=== PATIENT | male | born 1950 | race Caucasian/White ===

== ENCOUNTER 2017-03-05 16:57 | Inpatient (IN) ==
[2017-03-05] MEDS ORDERED: Ipratropium/Albuterol Neb 3 ML IH ONE (17:06)
[2017-03-05] MEDS ORDERED: methylPREDNISolone 125 MG/2 ML VIAL IVP ONE (17:06)
--- NOTE | 2017-03-05 17:11 | Emergency Department Note ---
Disposition Clinical Impression: Acute exacerbation of chronic obstructive airways disease Disposition: Admitted As Inpatient Condition: Fair Referrals: Chandra Hamilton MD [Primary Care Provider] - Forms: ED Satisfaction Letter Time of Disposition: 18:11 SOB HPI - General Chief Complaint: ED Shortness of Breath/Dyspnea Stated Complaint: SELENA Time Seen by Provider: 03/05/17 17:06 Source: patient Limitations: no limitations Nursing Notes Reviewed: Yes Vital Signs Reviewed: Yes - History of Present Illness 66-year-old with history COPD comes in with increasing shortness of breath over the last 3-4 days. Patient uses oxygen at night and has required oxygen during the day. On arrival here his pulse ox was 78%. Patient was placed on oxygen his pulse ox at 2 L came up to about 90%. Pt Subjective Complaint: shortness of breath, "asthma attack" Onset (ago): day(s) Context: recent illness - Related Data Allergies Allergy/AdvReac Type Severity Reaction Status Date / Time No Known Allergies Allergy Verified 03/05/17 17:32 Past Medical History - Past Medical History Medical history: Reports: COPD, diabetes, hypertension - Social History Smoking Status: Current every day smoker Physical Exam - General Limitations: no limitations General appearance: alert, in no apparent distress Course - Reevaluation(s) Reevaluation #1: 66-year-old with COPD comes in with increasing shortness of breath the last couple days, requiring oxygen to maintain his pulse ox. Patient does require oxygen at night but not usually during the day. Patient was placed on BiPAP here with improvement in symptoms. Note for further evaluation and treatment. Time: 18:11 - Consultations Consultation #1: Discussed with andrew Cordero. Time: 18:33 Vital Signs Temperature 98.0 F 03/05/17 17:00 Pulse Rate 117 03/05/17 17:00 Respiratory Rate 20 03/05/17 17:00 Blood Pressure 110/62 03/05/17 17:00 O2 Sat by Pulse Oximetry 82 03/05/17 17:00 Temperature 98.0 F 03/05/17 17:00 Pulse Rate 105 03/05/17 17:49 Respiratory Rate 14 03/05/17 17:49 Blood Pressure 110/76 03/05/17 17:49 O2 Sat by Pulse Oximetry 93 03/05/17 17:49 Oxygen Delivery Oxygen Delivery Nasal Cannula Shortness of Breath/Dyspnea - Lab Data Result diagrams: 03/05/17 17:52 03/05/17 17:52 Lab Results 03/05/17 03/05/17 03/05/17 Range/Units 17:23 17:52 17:52 WBC 18.7 H (4.3-11.1) K/mcL RBC 4.51 (4.19-5.50) M/mcL Hgb 14.5 (12.9-16.9) g/dL Hct 44.9 (37.5-50.1) % MCV 99.6 (83.0-100.0) fL MCH 32.2 (28.0-33.3) pg MCHC 32.3 (31.6-35.5) g/dL RDW 13.5 (11.5-14.5) % Plt Count 283 (140-400) K/mcL MPV 9.0 L (9.4-12.4) fL Immature Gran % 0.4 (0-4) % Seg Neutrophils % 85.6 % Lymphocytes % 3.4 % Monocytes % 10.4 % Eosinophils % 0.0 % Basophils % 0.2 % Neutrophils # 16.0 H (1.6-8.9) K/mcL Lymphocytes # 0.6 (0.6-4.6) K/mcL Monocytes # 2.0 H (0.0-1.3) K/mcL Eosinophils # 0.0 (0.0-0.6) K/mcL Basophils # 0.0 (0.0-0.2) K/mcL ABG pH 7.32 (7.32-7.45) pH Units ABG pCO2 78 H* (35-45) mmHg ABG pO2 75 L (85-104) mmHg ABG HCO3 40 H (21-27) mEq/L ABG Total CO2 43 H (20-26) mEq/L ABG O2 Saturation 93 L (95-98) % ABG Base Excess 10 H (-2 to 3) mEq/L O2 Delivery Device Cannula Inspired O2 3.0 (1-15=lpm [id number]=%) Sodium 136 (136-145) mEq/L Potassium 4.5 (3.5-4.5) mEq/L Chloride 91 L (98-109) mEq/L Carbon Dioxide 35 H (19-29) mEq/L BUN 12 (8-26) mg/dL Creatinine 0.70 L (0.72-1.25) mg/dL Est GFR ( Amer) > 60 (> 60) Est GFR (Non-Af Amer) > 60 (> 60) BUN/Creatinine Ratio 17 (6-26) Glucose 171 H (70-99) mg/dL Calculated Osmolality 286 (280-300) Lactic Acid (0.5-2.2) mmol/L Calcium 10.2 (8.6-10.8) mg/dL Troponin I (0-0.03) ng/mL B-Natriuretic Peptide (0-100) pg/mL 03/05/17 03/05/17 03/05/17 Range/Units 17:52 17:52 17:52 WBC (4.3-11.1) K/mcL RBC (4.19-5.50) M/mcL Hgb (12.9-16.9) g/dL Hct (37.5-50.1) % MCV (83.0-100.0) fL MCH (28.0-33.3) pg MCHC (31.6-35.5) g/dL RDW (11.5-14.5) % Plt Count (140-400) K/mcL MPV (9.4-12.4) fL Immature Gran % (0-4) % Seg Neutrophils % % Lymphocytes % % Monocytes % % Eosinophils % % Basophils % % Neutrophils # (1.6-8.9) K/mcL Lymphocytes # (0.6-4.6) K/mcL Monocytes # (0.0-1.3) K/mcL Eosinophils # (0.0-0.6) K/mcL Basophils # (0.0-0.2) K/mcL ABG pH (7.32-7.45) pH Units ABG pCO2 (35-45) mmHg ABG pO2 (85-104) mmHg ABG HCO3 (21-27) mEq/L ABG Total CO2 (20-26) mEq/L ABG O2 Saturation (95-98) % ABG Base Excess (-2 to 3) mEq/L O2 Delivery Device Inspired O2 (1-15=lpm [id number]=%) Sodium (136-145) mEq/L Potassium (3.5-4.5) mEq/L Chloride (98-109) mEq/L Carbon Dioxide (19-29) mEq/L BUN (8-26) mg/dL Creatinine (0.72-1.25) mg/dL Est GFR ( Amer) (> 60) Est GFR (Non-Af Amer) (> 60) BUN/Creatinine Ratio (6-26) Glucose (70-99) mg/dL Calculated Osmolality (280-300) Lactic Acid 2.5 H (0.5-2.2) mmol/L Calcium (8.6-10.8) mg/dL Troponin I 0.00 (0-0.03) ng/mL B-Natriuretic Peptide 42 (0-100) pg/mL
[2017-03-05 17:28] LABS: ABG Base Excess 10 mEq/L (-2 to 3); ABG HCO3 40 mEq/L (21-27); ABG Oxygen Saturation 93 % (95-98); ABG PCO2 78 mmHg (35-45); ABG PH 7.32 pH Units (7.32-7.45); ABG PO2 75 mmHg (85-104); ABG TCO2 43 mEq/L (20-26)
[2017-03-05 18:06] LABS: Basophils % 0.2 %; Hematocrit 44.9 % (37.5-50.1); Hemoglobin 14.5 g/dL (12.9-16.9); Immature Granulocytes % 0.4 % (0-4); Lymphocytes # 0.6 K/mcL (0.6-4.6); Lymphocytes % 3.4 %; Mean Corpuscular HGB Conc 32.3 g/dL (31.6-35.5); Mean Corpuscular Hemoglobin 32.2 pg (28.0-33.3); Mean Corpuscular Volume 99.6 fL (83.0-100.0); Monocytes % 10.4 %; Platelet Count 283 K/mcL (140-400); Red Blood Count 4.51 M/mcL (4.19-5.50); Red Cell Distribution Width 13.5 % (11.5-14.5); Segmented Neutrophils % 85.6 %
[2017-03-05 18:23] LABS: BUN/Creatinine Ratio 17 (6-26); Blood Urea Nitrogen 12 mg/dL (8-26); Calcium 10.2 mg/dL (8.6-10.8); Carbon Dioxide 35 mEq/L (19-29); Chloride 91 mEq/L (98-109); Glucose 171 mg/dL (70-99); Osmolality,Calculated 286 (280-300); Potassium 4.5 mEq/L (3.5-4.5); Sodium 136 mEq/L (136-145); eGFR For African Americans > 60 (> 60); eGFR For Non-African Americans > 60 (> 60)
[2017-03-05] MEDS ORDERED: Naloxone 0.4 MG/ML INJ IVP PRN (20:16)
[2017-03-05] MEDS ORDERED: *HR* HYDROcodone/Acet 5/325 mg TABLET PO PRN (20:16)
[2017-03-05] MEDS ORDERED: Ondansetron 4 MG/2 ML VIAL IVP PRN (20:16)
[2017-03-05] MEDS ORDERED: Acetaminophen 325 MG TABLET PO PRN (20:16)
--- NOTE | 2017-03-05 20:23 | Internal Med History&Physical ---
<Moi Ma - Last Filed: 03/05/17 21:27> Date of Encounter: 03/05/17 Time of Encounter: 20:21 Assessment and Plan (1) Acute and chronic respiratory failure Current visit: Yes Status: Acute Hypercapnic respiratory failure due to COPD exacerbation. - Pt uses 2L O2 at home due to COPD. Continues to smoke 1PPD. Encouraged to quit - Further management as below Qualifiers: Respiratory failure complication: hypercapnia Qualified Code(s): J96.22 - Acute and chronic respiratory failure with hypercapnia (2) Acute exacerbation of chronic obstructive airways disease Current visit: Yes Status: Acute - COPD exacerbation most likely. - CXR showed bilateral linear infiltrates, however most likely scarring. - Pt denies fevers, chills, productive cough. - ABG showing respiratory acidosis most likely chronic compensation given elevated HCO3. Was initially placed on BiPAP, tolerating 4L - WBC count and lactic acid most likely elevated due to hypoxia and reactive process - Severe sepsis unlikely. - Will give azithromycin 500 qday, methylprednisone 40mg q6hr, scheduled duonebs , supplemental O2, PRN albuterol (3) Lactic acidosis Current visit: Yes Status: Acute - Lactic acid of 2.5 on admission. More likely secondary to hypoxia than infectious process. - Will trend and monitor. - Azithromycin for COPD (4) Leukocytosis Current visit: Yes Status: Acute - WBC of 18.7 on admission. - Most likely reactive and related to hypoxia. - Pt does not appear to be septic. - Will continue management for COPD including azithromycin. - Monitor with daily labs, giving steroids, expect further rise. Qualifiers: Leukocytosis type: bandemia Qualified Code(s): D72.825 - Bandemia (5) Pre-diabetes Current visit: Yes Status: Chronic Per patient. Most recent A1c of 5.5% in August - Will get repeat a1c as it has been 3 months. - Will also check BS ACHS and give mild SSI due to administration of steroids - Diabetic diet. (6) Alcohol abuse Current visit: Yes Status: Chronic - Reports drinking a 6 pack of beer every night. - Encouraged to cut down. - Will monitor with CIWA protocol. - Thiamine, folate, b vitamin bag ordered. (7) DVT prophylaxis Current visit: Yes Status: Acute - Heparin 5000 units q12 Internal Medicine - H&P: HPI Chief complaint: SOB Admitted From: Emergency Dept Plans for Post Hospital Care: Home History of present illness: Mr. Bernal is a 66 year old male with past medical history of COPD presented to emergency department with a complaint of shortness of breath 1 week. He states his symptoms have been progressively worsening in that week. He states he has had a nonproductive cough during this time with what he believes to be thick mucus. Denies any symptoms of fevers, chills, chest pain, abdominal pain , nausea, vomiting, lower extremity edema. He states that his shortness of breath is exacerbated with exertion but denies any symptoms of orthopnea. He normally uses 2 L of oxygen at home, mostly during the night however states that using the 2 L continuously throughout the day it is not relieved his shortness of breath. He does admit to smoking one pack of cigarettes per day for the last 55 years. He also admits to drinking a sixpack of beer per night. He states he never hospitalized for COPD in the past. In the emergency department, vital signs were significant for tachycardia. He was saturating 3 L of oxygen in the mid 90s. Labs were significant for an elevated white blood cell count of 18.7, lactic acid 2.5. Arterial blood gas showed respiratory acidosis which was metabolically compensated. CO2 was in 70s. Past Med Surg Social Fam HX - Past Medical History Medical history: COPD, diabetes, hypertension - Past Surgical History Surgical History: no surgical history - Social History Smoking Status: Current every day smoker Alcohol use: heavy (6 beers per night) Internal Medicine - H&P: Meds Albuterol Sulfate [Albuterol Inhaler] 2 puff IH Q4H PRN 03/05/17 [History] Finasteride [Proscar] 5 mg PO DAILY 03/05/17 [History] Lisinopril [Zestril] 10 mg PO DAILY 03/05/17 [History] metFORMIN [Glucophage] 500 mg PO DAILY 03/05/17 [History] 3 Allergy/AdvReac Type Severity Reaction Status Date / Time No Known Allergies Allergy Verified 03/05/17 17:32 All Systems PM: A 10-system review of systems was performed and is negative for pertinent findings except as documented above in the HPI. - Constitutional Constitutional: no anorexia, no chills, no fatigue, no fever(s) - Cardiovascular Cardiovascular ROS IM: dyspnea, dyspnea on exertion, no chest pain, no diaphoresis, no edema, no orthopnea - Respiratory Respiratory: cough, dyspnea, dyspnea on exertion, wheezing, no excessive phlegm production, no change in phlegm color - Gastrointestinal Gastrointestinal: no abdominal pain, no constipation, no diarrhea, no nausea, no vomiting - Neurological Neurological ROS: no numbness, no tingling - Constitutional Vitals: Temp Pulse Resp BP Pulse Ox 98.0 F 98 16 125/71 94 03/05/17 17:00 03/05/17 19:17 03/05/17 19:17 03/05/17 19:17 03/05/17 19:17 Exam: Gen.: Vitals noted. No acute distress. AAOx3. Speaking in short sentences on 4L O2. HEENT: PERRL, oropharynx clear, Normocephalic, atraumatic. Poor dentition. Neck: Supple. No adenopathy. Cardiac: RRR, no murmur, +S1/S2 Pulmonary: Bilateral inspiratory wheeze, worse on right, equal chest expansion Abdomen: soft, nontender, BS noted, no guarding Back: Nontender throughout. MSK: ROM intact, no joint swelling noted Extremities: no BLE edema, nontender calf, no cyanosis or clubbing Neuro: A&Ox3, moves all extremities, no focal deficits Psych: Appropriate mood and behavior Internal Med - H&P Results - Labs CBC & Chem 7: 03/05/17 17:52 03/05/17 17:52 <Aydin Strong - Last Filed: 03/05/17 21:48> Date of Encounter: 03/05/17 Internal Medicine - H&P: HPI History of present illness: Mr. Bernal is a 66 year old male All Systems PM: A 10-system review of systems was performed and is negative for pertinent findings except as documented above in the HPI. - Constitutional Vitals: Temp Pulse Resp BP Pulse Ox 98.9 F 90 18 145/72 98 03/05/17 20:30 03/05/17 20:30 03/05/17 20:30 03/05/17 20:30 03/05/17 20:30 Internal Med - H&P Results - Labs CBC & Chem 7: 03/05/17 17:52 03/05/17 17:52 - Attending Attestation I have seen and examined the patient independently. I have discussed with resident physician regarding the management plan. Agree with the documentation. Patient admitted to COPD exacerbation. We will continue antibiotics, steroids, and bronchodilator treatment. We will continue oxygen and may consider BiPAP as needed. We will add magnesium 2g iv once for bronchospasm. Continue closely monitor patient.
[2017-03-05] MEDS ORDERED: Dextrose Gel 15 GM PO PRN ×2 (20:28)
[2017-03-05] MEDS ORDERED: *HR* Dextrose 50 % in Water (Syg) 50 ML SYRINGE IVP PRN (20:28)
[2017-03-05] MEDS ORDERED: D5% in Water 1,000 ML IVC PRN (20:28)
[2017-03-05] MEDS ORDERED: Magnesium Sulfate 2 GM in D5% in Water 100 ML IVPB ONE (20:31)
[2017-03-05] MEDS ORDERED: Azithromycin 500 MG in D5% in Water 250 ML IVPB SCH (21:00)
[2017-03-05] MEDS ORDERED: *HR* LORazepam 2 MG/ML VIAL IVP PRN (21:22)
[2017-03-05 21:36] LABS: Hemoglobin A1C 5.8 %
[2017-03-05] MEDS ORDERED: Ipratropium/Albuterol Neb 3 ML IH PRN (21:57)
[2017-03-05] MEDS: Ipratropium/Albuterol Neb 3 ML IH SCH (22:15)
[2017-03-05] MEDS: MethylPREDNISolone 40 MG/ML VIAL IVP SCH (23:40)
[2017-03-06] MEDS ORDERED: MethylPREDNISolone 40 MG/ML VIAL IVP SCH
[2017-03-06] MEDS: Ipratropium/Albuterol Neb 3 ML IH SCH ×4 (04:09→23:03)
[2017-03-06] MEDS: *HR* Heparin 5,000 UNIT/ML VIAL SQ SCH ×2 (05:37→16:33)
[2017-03-06] MEDS: MethylPREDNISolone 40 MG/ML VIAL IVP SCH ×4 (05:37→23:16)
[2017-03-06 05:42] LABS: Basophils % 0.1 %; Hematocrit 41.7 % (37.5-50.1); Hemoglobin 13.3 g/dL (12.9-16.9); Immature Granulocytes % 0.6 % (0-4); Lymphocytes # 0.5 K/mcL (0.6-4.6); Lymphocytes % 3.5 %; Mean Corpuscular HGB Conc 31.9 g/dL (31.6-35.5); Mean Corpuscular Hemoglobin 31.4 pg (28.0-33.3); Mean Corpuscular Volume 98.3 fL (83.0-100.0); Mean Platelet Volume 8.6 fL (9.4-12.4); Monocytes # 0.3 K/mcL (0.0-1.3); Monocytes % 2.1 %; Neutrophils # 13.7 K/mcL (1.6-8.9); Platelet Count 287 K/mcL (140-400); Red Blood Count 4.24 M/mcL (4.19-5.50); Red Cell Distribution Width 13.3 % (11.5-14.5); Segmented Neutrophils % 93.7 %
[2017-03-06 06:22] LABS: BUN/Creatinine Ratio 20 (6-26); Blood Urea Nitrogen 13 mg/dL (8-26); Calcium 9.5 mg/dL (8.6-10.8); Carbon Dioxide 37 mEq/L (19-29); Chloride 92 mEq/L (98-109); Glucose 206 mg/dL (70-99); Magnesium 2.5 mg/dL (1.6-2.6); Osmolality,Calculated 288 (280-300); Potassium 4.7 mEq/L (3.5-4.5); Sodium 136 mEq/L (136-145); eGFR For African Americans > 60 (> 60); eGFR For Non-African Americans > 60 (> 60)
[2017-03-06] MEDS: Insulin LISPRO 300 UNITS/3 ML VIAL SQ SCH ×3 (08:28→16:33)
[2017-03-06] MEDS: Finasteride 5 MG TABLET PO SCH (08:28)
[2017-03-06] MEDS: Folic Acid 1 MG TABLET PO SCH (08:28)
[2017-03-06] MEDS ORDERED: Nicotine 21 MG PATCH.TD24 TD PRN (10:20)
--- NOTE | 2017-03-06 10:21 | Internal Med Progress Note ---
Date of Encounter: 03/06/17 Time of Encounter: 10:19 - Assessment and plan (1) Acute exacerbation of chronic obstructive airways disease Current Visit: Yes Status: Acute Assessment and plan: Improving. Improving leukocytosis and lactic acidosis. Continue IV steroids, taper down as tolerated. Change antibiotics to IV Levaquin. Chest x-ray shows bibasal infiltrates-infection versus scar tissue. Continue scheduled bronchodilators, supplemental oxygen. Patient will require inhaled corticosteroids at discharge. Start inhalational Mucomyst. (2) Tobacco abuse Current Visit: Yes Status: Chronic Assessment and plan: Smoking cessation counseling done for 3 minutes. Patient understands the risks of tobacco abuse and harmful effects of underlying COPD. Currently not motivated to quit. Nicotine transdermal patch as needed. (3) BPH (benign prostatic hyperplasia) Current Visit: Yes Status: Chronic Assessment and plan: Continue Flomax. Qualifiers: Lower urinary tract symptom presence: unspecified whether lower urinary tract symptoms present Qualified Code(s): N40.0 - Benign prostatic hyperplasia without lower urinary tract symptoms (4) Lactic acidosis Current Visit: Yes Status: Resolved Assessment and plan: Likely due to hypoxia and use of albuterol. (5) Pre-diabetes Current Visit: Yes Status: Chronic Assessment and plan: Noted to be on metformin at home. Continue Accu-Chek blood glucose monitoring with sliding scale insulin. At risk for steroid-induced hyperglycemia. Hemoglobin A1c noted to be 5.8%. Diabetic diet. (6) Acute and chronic respiratory failure Current Visit: Yes Status: Chronic Assessment and plan: Noted to be on 3 L/m supplemental oxygen via nasal cannula at home, due to underlying COPD. Continue supplemental oxygen and wean down FiO2 as tolerated. Qualifiers: Respiratory failure complication: hypoxia Qualified Code(s): J96.21 - Acute and chronic respiratory failure with hypoxia (7) Alcohol abuse Current Visit: Yes Status: Chronic Assessment and plan: No signs and symptoms of alcohol withdrawal at this time. Continue CIWA protocol. Thiamine and folate supplements. - Subjective Interval history: Feels better than yesterday but needs breathing treatment at this time as he feels tight in his chest; no chest pain, leg swelling, orthopnea, fever/chills; continues to smoke; - Constitutional Vitals: Temp Pulse Resp BP Pulse Ox 97.9 F 69 16 122/65 97 03/06/17 07:45 03/06/17 07:45 03/06/17 07:45 03/06/17 07:45 03/06/17 07:45 General appearance: Present: mild distress, A&O X 3, answers questions appropriately - Respiratory Respiratory exam: Present: decreased breath sounds (decreased air entry B/L), CTAB. Absent: accessory muscle use, rales, rhonchi, wheezes - Cardiovascular Cardiovascular exam: Present: RRR, +S1, +S2. Absent: diastolic murmur, gallop, rubs, systolic murmur - GI/Abdominal GI/Abdominal exam: Present: normal bowel sounds, soft, no peritoneal signs. Absent: distended, tenderness - Extremities Exam Extremities exam: Present: full ROM, warm, radial pulses palpable and symmetrical. Absent: calf tenderness, cyanotic, pedal edema - Neurological Exam Neurological exam: Present: CN II-XII intact, oriented X3, no focal deficits. Absent: pronater drift, facial droop, speech deficit Internal Medicine: Result - Labs CBC & Chem 7: 03/06/17 05:33 03/06/17 05:33 Labs: Short CBC 03/06/17 Range/Units 05:33 WBC 14.6 H (4.3-11.1) K/mcL Hgb 13.3 (12.9-16.9) g/dL Hct 41.7 (37.5-50.1) % Plt Count 287 (140-400) K/mcL Neutrophils # 13.7 H (1.6-8.9) K/mcL BMP 03/06/17 05:33 Sodium 136 Potassium 4.7 H Chloride 92 L Carbon Dioxide 37 H BUN 13 Creatinine 0.64 L Glucose 206 H Calcium 9.5 - ABG Interpretation ABG results: ABG ABG pH 7.32 pH Units (7.32-7.45) 03/05/17 17:23 ABG pCO2 78 mmHg (35-45) H* 03/05/17 17:23 ABG pO2 75 mmHg (85-104) L 03/05/17 17:23 ABG O2 Saturation 93 % (95-98) L 03/05/17 17:23 Consult Discharge Plan - Plan Referrals: Hamilton,Chandra Arce MD [Primary Care Provider] -
[2017-03-06] MEDS: Levofloxacin 500 MG/100 ML 500 MG/100 ML BAG IVPB SCH (11:45)
[2017-03-06] MEDS: Acetylcysteine 10% 2 ML INHSOL IH SCH ×2 (15:17→23:03)
[2017-03-06] MEDS: Thiamine (B-1) 100 MG, Folic Acid 1 MG, MVI, adult with vitamin K 10 ML in 0.9 % Sodi... IVPB SCH (16:34)
--- NOTE | 2017-03-06 18:14 | Electrocardiograph Report ---
[place] [id number] Test Date: 2017-03-05 Pat Name: Liu Bernal Department: 104 Room: 2NE22 Gender: M [employer]ag [employer]: NATACHA : [id number] Requested By: Liu Rashid Order Number: [id number] Reading MD: Moncho Leo MD Measurements Intervals [place] Rate: 111 P: 76 [place]: 185 QRS: 67 QRSD: 101 T: 62 QT: 306 QTc: 372 Interpretive Statements SINUS TACHYCARDIA WITH OCCASIONAL VENTRICULAR PREMATURE COMPLEXES Electronically Signed On 03-06-2017 18:13:39 EST by Moncho Leo MD
[2017-03-07] MEDS: MethylPREDNISolone 40 MG/ML VIAL IVP SCH ×4 (05:18→23:47)
[2017-03-07] MEDS: *HR* Heparin 5,000 UNIT/ML VIAL SQ SCH ×2 (05:18→16:51)
[2017-03-07 05:52] LABS: Basophils % 0.1 %; Hematocrit 40.4 % (37.5-50.1); Hemoglobin 13.1 g/dL (12.9-16.9); Immature Granulocytes % 0.6 % (0-4); Lymphocytes # 0.8 K/mcL (0.6-4.6); Lymphocytes % 4.4 %; Mean Corpuscular HGB Conc 32.4 g/dL (31.6-35.5); Mean Corpuscular Hemoglobin 31.6 pg (28.0-33.3); Mean Corpuscular Volume 97.6 fL (83.0-100.0); Mean Platelet Volume 8.9 fL (9.4-12.4); Monocytes # 0.7 K/mcL (0.0-1.3); Monocytes % 4.2 %; Neutrophils # 15.9 K/mcL (1.6-8.9); Platelet Count 322 K/mcL (140-400); Red Blood Count 4.14 M/mcL (4.19-5.50); Red Cell Distribution Width 13.3 % (11.5-14.5); Segmented Neutrophils % 90.7 %
[2017-03-07] MEDS: Acetylcysteine 10% 2 ML INHSOL IH SCH ×4 (06:00→21:29)
[2017-03-07] MEDS: Ipratropium/Albuterol Neb 3 ML IH SCH ×4 (06:01→21:29)
[2017-03-07 06:24] LABS: BUN/Creatinine Ratio 29 (6-26); Blood Urea Nitrogen 20 mg/dL (8-26); Calcium 9.3 mg/dL (8.6-10.8); Carbon Dioxide 37 mEq/L (19-29); Chloride 96 mEq/L (98-109); Glucose 189 mg/dL (70-99); Osmolality,Calculated 294 (280-300); Potassium 4.2 mEq/L (3.5-4.5); Sodium 138 mEq/L (136-145); eGFR For African Americans > 60 (> 60); eGFR For Non-African Americans > 60 (> 60)
[2017-03-07] MEDS: Finasteride 5 MG TABLET PO SCH (08:15)
[2017-03-07] MEDS: Folic Acid 1 MG TABLET PO SCH (08:15)
[2017-03-07] MEDS: Insulin LISPRO 300 UNITS/3 ML VIAL SQ SCH ×3 (08:15→16:52)
[2017-03-07] MEDS: Levofloxacin 500 MG/100 ML 500 MG/100 ML BAG IVPB SCH (11:43)
--- NOTE | 2017-03-07 12:02 | Internal Med Progress Note ---
Date of Encounter: 03/07/17 Time of Encounter: 12:01 - Assessment and plan (1) Acute exacerbation of chronic obstructive airways disease Current Visit: Yes Status: Acute Assessment and plan: Improving. Leukocytosis likely due to use of IV steroids. Continue IV steroids, taper down as tolerated. Continue IV Levaquin. Chest x-ray shows bibasal infiltrates-infection versus scar tissue. Continue scheduled bronchodilators, supplemental oxygen. Patient will require inhaled corticosteroids at discharge. On inhalational Mucomyst. (2) Tobacco abuse Current Visit: Yes Status: Chronic Assessment and plan: Nicotine transdermal patch as needed. (3) BPH (benign prostatic hyperplasia) Current Visit: Yes Status: Chronic Assessment and plan: Continue Flomax. Qualifiers: Lower urinary tract symptom presence: unspecified whether lower urinary tract symptoms present Qualified Code(s): N40.0 - Benign prostatic hyperplasia without lower urinary tract symptoms (4) Lactic acidosis Current Visit: Yes Status: Resolved (5) Pre-diabetes Current Visit: Yes Status: Chronic Assessment and plan: Noted to be on metformin at home. Continue Accu-Chek blood glucose monitoring with sliding scale insulin. At risk for steroid-induced hyperglycemia. Hemoglobin A1c noted to be 5.8%. Diabetic diet. (6) Acute and chronic respiratory failure Current Visit: Yes Status: Chronic Qualifiers: Respiratory failure complication: hypoxia Qualified Code(s): J96.21 - Acute and chronic respiratory failure with hypoxia (7) Alcohol abuse Current Visit: Yes Status: Chronic Assessment and plan: No signs and symptoms of alcohol withdrawal at this time. Continue CIWA protocol, not requiring IV Ativan. Thiamine and folate supplements. - Subjective Interval history: Feels better but reports feeling jittery and anxious after breathing treatments ; improving shortness of breath; no chest pain; - Constitutional Vitals: Temp Pulse Resp BP Pulse Ox 98.1 F 85 18 107/66 96 03/07/17 07:00 03/07/17 07:00 03/07/17 09:46 03/07/17 07:00 03/07/17 09:46 General appearance: Present: A&O X 3, answers questions appropriately - Respiratory Respiratory exam: Present: decreased breath sounds (improving air entry), CTAB ( coarse breath sounds B/L). Absent: accessory muscle use, rales, rhonchi, wheezes - Cardiovascular Cardiovascular exam: Present: RRR, +S1, +S2. Absent: diastolic murmur, gallop, rubs, systolic murmur - GI/Abdominal GI/Abdominal exam: Present: normal bowel sounds, soft, no peritoneal signs. Absent: distended, tenderness - Extremities Exam Extremities exam: Present: full ROM, warm, radial pulses palpable and symmetrical. Absent: calf tenderness, cyanotic, pedal edema Internal Medicine: Result - Labs CBC & Chem 7: 03/07/17 05:26 03/07/17 05:26 Labs: Short CBC 03/07/17 Range/Units 05:26 WBC 17.5 H (4.3-11.1) K/mcL Hgb 13.1 (12.9-16.9) g/dL Hct 40.4 (37.5-50.1) % Plt Count 322 (140-400) K/mcL Neutrophils # 15.9 H (1.6-8.9) K/mcL BMP 03/07/17 05:26 Sodium 138 Potassium 4.2 Chloride 96 L Carbon Dioxide 37 H BUN 20 Creatinine 0.68 L Glucose 189 H Calcium 9.3 - ABG Interpretation ABG results: ABG ABG pH 7.32 pH Units (7.32-7.45) 03/05/17 17:23 ABG pCO2 78 mmHg (35-45) H* 03/05/17 17:23 ABG pO2 75 mmHg (85-104) L 03/05/17 17:23 ABG O2 Saturation 93 % (95-98) L 03/05/17 17:23 Consult Discharge Plan - Plan Referrals: Chandra Hamilton MD [Primary Care Provider] -
[2017-03-07] MEDS: Thiamine (B-1) 100 MG, Folic Acid 1 MG, MVI, adult with vitamin K 10 ML in 0.9 % Sodi... IVPB SCH (16:51)
[2017-03-08] MEDS: Ipratropium/Albuterol Neb 3 ML IH SCH ×4 (03:57→22:19)
[2017-03-08] MEDS: Acetylcysteine 10% 2 ML INHSOL IH SCH ×4 (03:57→22:19)
[2017-03-08] MEDS: *HR* Heparin 5,000 UNIT/ML VIAL SQ SCH ×2 (05:31→17:17)
[2017-03-08] MEDS: Folic Acid 1 MG TABLET PO SCH (09:18)
[2017-03-08] MEDS: MethylPREDNISolone 40 MG/ML VIAL IVP SCH ×2 (09:18→21:02)
[2017-03-08] MEDS: Vitamin B Complex/Vit C/Vit E 1 EACH TABLET PO SCH (09:18)
[2017-03-08] MEDS: Insulin LISPRO 300 UNITS/3 ML VIAL SQ SCH ×3 (09:18→17:16)
[2017-03-08] MEDS: Finasteride 5 MG TABLET PO SCH (09:18)
--- NOTE | 2017-03-08 11:18 | Internal Med Progress Note ---
Date of Encounter: 03/08/17 Time of Encounter: 11:17 - Assessment and plan (1) Acute exacerbation of chronic obstructive airways disease Status: Acute Assessment and plan: Improving. Leukocytosis likely due to use of IV steroids. Continue IV steroids, taper down as tolerated. Continue IV Levaquin. Chest x-ray shows bibasal infiltrates-infection versus scar tissue. Continue scheduled bronchodilators, supplemental oxygen. Patient will require inhaled corticosteroids at discharge. On inhalational Mucomyst. Physical and occupational therapy evaluation. (2) Tobacco abuse Status: Chronic Assessment and plan: Nicotine transdermal patch as needed. (3) BPH (benign prostatic hyperplasia) Status: Chronic Qualifiers: Lower urinary tract symptom presence: unspecified whether lower urinary tract symptoms present Qualified Code(s): N40.0 - Benign prostatic hyperplasia without lower urinary tract symptoms (4) Lactic acidosis Status: Resolved (5) Pre-diabetes Status: Chronic Assessment and plan: Noted to be on metformin at home. Continue Accu-Chek blood glucose monitoring with sliding scale insulin. At risk for steroid-induced hyperglycemia. Hemoglobin A1c noted to be 5.8%. Diabetic diet. (6) Acute and chronic respiratory failure Status: Chronic Assessment and plan: Noted to be on 3 L/m supplemental oxygen via nasal cannula at home, due to underlying COPD. Continue supplemental oxygen , currently at baseline oxygen requirements. Qualifiers: Respiratory failure complication: hypoxia Qualified Code(s): J96.21 - Acute and chronic respiratory failure with hypoxia (7) Alcohol abuse Status: Chronic - Subjective Interval history: Feels better with improving shortness of breath; but he feels like he needs another day of recuperation as he feels weak and unsteady and lives alone in a two paxton house; - Constitutional Vitals: Temp Pulse Resp BP Pulse Ox 97.9 F 63 20 135/74 97 03/08/17 07:30 03/08/17 07:30 03/08/17 07:30 03/08/17 07:30 03/08/17 07:30 General appearance: Present: A&O X 3, answers questions appropriately - Respiratory Respiratory exam: Present: decreased breath sounds (decreased air entry B/L), CTAB. Absent: accessory muscle use, rales, rhonchi, wheezes - Cardiovascular Cardiovascular exam: Present: RRR, +S1, +S2. Absent: diastolic murmur, gallop, rubs, systolic murmur - GI/Abdominal GI/Abdominal exam: Present: normal bowel sounds, soft, no peritoneal signs. Absent: distended, tenderness Internal Medicine: Result - Labs CBC & Chem 7: 03/07/17 05:26 03/07/17 05:26 - ABG Interpretation ABG results: ABG ABG pH 7.32 pH Units (7.32-7.45) 03/05/17 17:23 ABG pCO2 78 mmHg (35-45) H* 03/05/17 17:23 ABG pO2 75 mmHg (85-104) L 03/05/17 17:23 ABG O2 Saturation 93 % (95-98) L 03/05/17 17:23 Consult Discharge Plan - Plan Instructions: Prednisone (By mouth), Levofloxacin (By mouth), Budesonide/ Formoterol (By breathing), Chronic Obstructive Pulmonary Disease (DC) Referrals: Alfonso,Chandra Arce MD [Primary Care Provider] - 03/18/17 2:40 pm Prescriptions: Budesonide/Formoterol 160/4.5 [Symbicort 160/4.5] 2 puff IH BIDR 30 Days hfa.aer.ad levoFLOXacin [Levaquin] 500 mg PO DAILY #2 tablet predniSONE [PredniSONE] 60 mg PO DAILY 12 Days tablet
[2017-03-08] MEDS: Levofloxacin 500 MG/100 ML 500 MG/100 ML BAG IVPB SCH (12:13)
[2017-03-08] MEDS: Thiamine (B-1) 100 MG, Folic Acid 1 MG, MVI, adult with vitamin K 10 ML in 0.9 % Sodi... IVPB SCH (17:17)
[2017-03-09] MEDS: Acetylcysteine 10% 2 ML INHSOL IH SCH ×2 (03:37→11:00)
[2017-03-09] MEDS: Ipratropium/Albuterol Neb 3 ML IH SCH ×2 (03:37→11:00)
[2017-03-09] MEDS: *HR* Heparin 5,000 UNIT/ML VIAL SQ SCH (06:30)
[2017-03-09 06:56] VITALS: BP 140/82
[2017-03-09] MEDS: Folic Acid 1 MG TABLET PO SCH (08:35)
[2017-03-09] MEDS: Insulin LISPRO 300 UNITS/3 ML VIAL SQ SCH ×2 (08:35→11:50)
[2017-03-09] MEDS: Vitamin B Complex/Vit C/Vit E 1 EACH TABLET PO SCH (08:35)
[2017-03-09] MEDS: MethylPREDNISolone 40 MG/ML VIAL IVP SCH (08:35)
[2017-03-09] MEDS: Finasteride 5 MG TABLET PO SCH (08:35)
[2017-03-09] MEDS ORDERED: levoFLOXacin 500 MG TABLET PO SCH (11:00)
[2017-03-09] MEDS ORDERED: FLUARIX QUAD 2017-18 36MOS UP/PF 0.5 ML SYRINGE IM ONE (11:15)
--- NOTE | 2017-03-09 12:45 | Discharge Summary ---
Date of Encounter: 03/09/17 Time of Encounter: 11:35 - Discharge Diagnosis (1) Acute exacerbation of chronic obstructive airways disease Priority: Primary Status: Acute (2) Tobacco abuse Priority: Secondary Status: Chronic (3) BPH (benign prostatic hyperplasia) Priority: Secondary Status: Chronic Qualifiers: Lower urinary tract symptom presence: unspecified whether lower urinary tract symptoms present Qualified Code(s): N40.0 - Benign prostatic hyperplasia without lower urinary tract symptoms (4) Lactic acidosis Priority: Primary Status: Resolved (5) Pre-diabetes Priority: Secondary Status: Chronic (6) Acute and chronic respiratory failure Priority: Primary Status: Chronic Qualifiers: Respiratory failure complication: hypoxia Qualified Code(s): J96.21 - Acute and chronic respiratory failure with hypoxia (7) Alcohol abuse Priority: Secondary Status: Chronic - Discharge Medications Prescriptions: Budesonide/Formoterol 160/4.5 [Symbicort 160/4.5] 2 puff IH BIDR 30 Days hfa.aer.ad levoFLOXacin [Levaquin] 500 mg PO DAILY #2 tablet predniSONE [PredniSONE] 60 mg PO DAILY 12 Days tablet Home Medications: Albuterol Sulfate [Albuterol Inhaler] 2 puff IH Q4H PRN 03/05/17 [History] Finasteride [Proscar] 5 mg PO DAILY 03/05/17 [History] Lisinopril [Zestril] 10 mg PO DAILY 03/05/17 [History] metFORMIN [Glucophage] 500 mg PO DAILY 03/05/17 [History] Budesonide/Formoterol 160/4.5 [Symbicort 160/4.5] 2 puff IH BIDR 30 Days hfa.aer.ad 03/09/17 [Rx] levoFLOXacin [Levaquin] 500 mg PO DAILY #2 tablet 03/09/17 [Rx] predniSONE [PredniSONE] 60 mg PO DAILY 12 Days tablet 03/09/17 [Rx] Allergies/Adverse Reactions: 3 Allergy/AdvReac Type Severity Reaction Status Date / Time No Known Allergies Allergy Verified 03/05/17 17:32 Date of admission: 03/05/17 18:50 Primary care physician: Chandra Hamilton MD Consults: 03/05/17 20:17 Consult to Nurse Navigator [CONS] Routine Comment: 03/08/17 11:16 Consult to Occupational Therapy [CONS] Routine Comment: Evaluate, develop and implement POC Reason for Consult: Unsteady gait, COPD, smoker Consult to Physical Therapy [CONS] Routine Comment: Evaluate, develop and implement POC Reason for Consult: Unsteady gait, COPD, smoker 03/09/17 09:04 Consult to Bonderizer [CONS] Routine Reason for SW Consult: Alcohol/substance abuse Discharging clinician: Priya Murphy Anticipated date of discharge: 03/09/17 - Patient Status Disposition: Home, Self-Care Condition: Good Functional capacity at discharge: independent ambulation Overall status at discharge: patient is progressing back to baseline - Discharge Instructions Instructions: Prednisone (By mouth), Levofloxacin (By mouth), Budesonide/ Formoterol (By breathing), Chronic Obstructive Pulmonary Disease (DC) Follow Up With: Chandra Hamilton MD [Primary Care Provider] - 03/18/17 2:40 pm - Diet and Activity Activity: resume usual activities as tolerated, wear oxygen at all times Diet: diabetic diet, low fat, low cholesterol, low salt diet Hospital course: Mr. Bernal is a 66 year old male with the above medical problems, admitted with worsening SOB and wheezing. Chest XRay showed bibasal linear scarring, could be atelectasis vs infection. He was noted to be in acute exacerbation of COPD and was started on IV steroids, empiric iV antibiotics and supplemental o2 , PRN antitussives and supportive care. Patient gradually improved on this regimen, O2 requirements returned to baseline, he tolerated oral diet. PT/OT evaluation was completed, recommend no needs. Patient is medically stable for discharge on oral antibiotics and steroids. Time spent discussing smoking cessation with patient: 3 to 10 minutes - Time Spent with Patient Total time spent providing and/or coordinating discharge services: Greater than 30 minutes (45 min) - Constitutional Vitals: Temp Pulse Resp BP Pulse Ox 97.8 F 58 16 140/82 97 03/09/17 06:53 03/09/17 06:53 03/09/17 11:00 03/09/17 06:53 03/09/17 11:00 General appearance: Present: A&O X 3, answers questions appropriately - Respiratory Respiratory exam: Present: decreased breath sounds (B/L decreased air entry). Absent: accessory muscle use, rales, rhonchi, wheezes
== END 2017-03-09 15:15 | disposition home or self-care (01) | DRG 190 ==
LOC: EMEROO 16:57 → 2NENU 18:50 → SUATTDRO 18:50 → 2NENU 19:46
PROVIDERS: ADMIT Nurse Practitioner Family; ATTEND Internal Medicine

== ENCOUNTER 2017-06-02 15:39 | Inpatient (IN) ==
[2017-06-02 16:56] LABS: Basophils % 0.2 %; Hemoglobin 12.7 g/dL (12.9-16.9); Immature Granulocytes % 0.5 % (0-4); Lymphocytes # 0.4 K/mcL (0.6-4.6); Lymphocytes % 2.6 %; Mean Corpuscular HGB Conc 32.6 g/dL (31.6-35.5); Mean Corpuscular Hemoglobin 32.2 pg (28.0-33.3); Mean Corpuscular Volume 98.7 fL (83.0-100.0); Mean Platelet Volume 8.9 fL (9.4-12.4); Monocytes # 0.7 K/mcL (0.0-1.3); Monocytes % 5.3 %; Neutrophils # 12.5 K/mcL (1.6-8.9); Platelet Count 240 K/mcL (140-400); Red Blood Count 3.95 M/mcL (4.19-5.50); Red Cell Distribution Width 16.1 % (11.5-14.5); Segmented Neutrophils % 91.4 %
--- NOTE | 2017-06-02 17:11 | Emergency Department Note ---
Disposition Clinical Impression: COPD exacerbation Disposition: Admitted As Inpatient Condition: Good Time of Disposition: 20:36 General Adult HPI - General Chief complaint: ED Shortness of Breath/Dyspnea Stated complaint: SELENA Time Seen by Provider: 06/02/17 15:50 Source: patient Limitations: no limitations Nursing Notes Reviewed: Yes Vital Signs Reviewed: Yes - History of Present Illness HPI Narrative: 66 yo male presenting to the emergency department complaining of increased shortness of breath. Patient had COPD and currently follows with edema pulmonology. His following up with edema pulmonology today and they were concerned for his tachycardia and increased shortness of breath today and sent him to the emergency department for further workup. He was sent with orders requesting a CTA of the chest along the bilateral lower extremity Dopplers. Patient states this morning he had increased shortness of breath from baseline. He denies chest pain, recent illnesses, nausea, vomiting or diarrhea. He denies any sick contacts. Patient has no history of DVT or PE. He is on no anticoagulation at this time. No known cardiac history. No history of stroke. Pain Scale: 0 - Related Data Home Medications Medication Instructions Recorded Confirmed Albuterol Sulfate [Albuterol 2 puff IH Q4H PRN 03/05/17 06/02/17 Inhaler] Finasteride [Proscar] 5 mg PO DAILY 03/05/17 06/02/17 Lisinopril [Zestril] 10 mg PO DAILY 03/05/17 06/02/17 metFORMIN [Glucophage] 500 mg PO DAILY 03/05/17 06/02/17 Albuterol Neb [Proventil Neb] 2.5 mg IH TID 06/02/17 06/02/17 Ipratropium/Albuterol Neb [Duoneb] 3 ml IH Q6HR 06/02/17 06/02/17 Nystatin [Nystatin Suspension] 400,000 unit PO QID 06/02/17 06/02/17 Previous Rx's Medication Instructions Recorded Budesonide/Formoterol 160/4.5 2 puff IH BIDR 30 Days hfa.aer.ad 03/09/17 [Symbicort 160/4.5] predniSONE [PredniSONE] 60 mg PO DAILY 12 Days tablet 03/09/17 Allergies Allergy/AdvReac Type Severity Reaction Status Date / Time No Known Allergies Allergy Verified 06/02/17 15:45 All systems ED: reviewed and negative except as stated. Constitutional: Denies: fever, chills Cardiovascular: Denies: chest pain, palpitations Respiratory: Reports: dyspnea. Denies: wheezes, hemoptysis Gastrointestinal: Denies: abdominal pain, nausea, vomiting Integumentary: Denies: rash Neurological: Denies: weakness, numbness, paresthesias Past Medical History - Past Medical History Attestation: Yes The following information was validated with the patient. Medical history: Reports: COPD, diabetes, hypertension Surgical history: Reports: no surgical history Psychiatric history: Reports: no psych history - Social History Smoking Status: Current every day smoker Smokeless Tobacco Status: No Alcohol use: Reports: heavy Drug use: Reports: none Physical Exam - General Limitations: no limitations General appearance: alert, in no apparent distress - Head Head exam: atraumatic, normocephalic, normal inspection - Eye Eye exam: Present: normal appearance. Absent: scleral icterus, conjunctival injection - ENT ENT exam: normal exam, mucous membranes moist - Neck Neck exam: Present: normal inspection, full ROM. Absent: tenderness, meningismus - Chest Chest inspection: Present: normal inspection, symmetric chest wall rise. Absent : tenderness, rash - Respiratory Respiratory exam: Present: prolonged expiratory phase. Absent: respiratory distress, stridor - Cardiovascular Cardiovascular exam: Present: normal rhythm, tachycardia - Abdominal Exam Abdominal exam: Present: soft, Non-Tender. Absent: distention, guarding, rebound - Extremities Exam Extremities exam: Present: normal inspection, full ROM, pedal edema - Neurological Exam Neurological exam: Present: alert, oriented X3 - Psychiatric Psychiatric exam: Present: normal affect, normal mood - Skin Skin exam: Present: warm, intact Course Course Narrative: 58-year-old male presenting to the emergency department she complained of increased shortness of breath. Sent from pulmonology for further workup. Patient denies chest pain or other symptoms. From a CT of the chest, bilateral lower extremity Dopplers per pulmonology. We will also obtain basic lab work including troponin and EKG along with CBC and BMP. Patient is alert and oriented 3 in the room. He is tachycardic in the low 100s but otherwise vital signs are stable. He agrees to this plan and disposition pending results - Reevaluation(s) Reevaluation #1: Patient's lab work has resulted within normal limits. Upon ambulation to the restroom and the patient dropped his oxygen saturation to 72%. Patient was having difficulty breathing as well. We provided the patient with a DuoNeb and prednisone. At this time will admit the patient for COPD exacerbation. CT of the chest was normal with no signs of pneumonia. Bilateral lower extremity Dopplers were also within normal limits. Patient is alert and oriented 3 in the room with stable vital signs at rest. He agrees with this plan. I spoke with the admitting physician Dr. Wagoner who agrees to accept the patient. Vital Signs Temperature 98.9 F 06/02/17 15:43 Pulse Rate 108 06/02/17 15:43 Respiratory Rate 16 06/02/17 15:43 Blood Pressure 124/65 06/02/17 15:43 O2 Sat by Pulse Oximetry 97 06/02/17 15:43 Temperature 98.4 F 06/02/17 22:45 Pulse Rate 82 06/02/17 22:45 Respiratory Rate 18 06/02/17 23:11 Blood Pressure 171/81 06/02/17 22:45 O2 Sat by Pulse Oximetry 96 06/02/17 23:11 Oxygen Delivery Oxygen Delivery Nasal Cannula Medical Decision Making - Lab Data Result diagrams: 06/02/17 16:33 06/02/17 16:33 Lab Results 06/02/17 06/02/17 06/02/17 Range/Units 16:33 16:33 16:33 WBC 13.7 H (4.3-11.1) K/mcL RBC 3.95 L (4.19-5.50) M/mcL Hgb 12.7 L (12.9-16.9) g/dL Hct 39.0 (37.5-50.1) % MCV 98.7 (83.0-100.0) fL MCH 32.2 (28.0-33.3) pg MCHC 32.6 (31.6-35.5) g/dL RDW 16.1 H (11.5-14.5) % Plt Count 240 (140-400) K/mcL MPV 8.9 L (9.4-12.4) fL Immature Gran % 0.5 (0-4) % Seg Neutrophils % 91.4 % Lymphocytes % 2.6 % Monocytes % 5.3 % Eosinophils % 0.0 % Basophils % 0.2 % Neutrophils # 12.5 H (1.6-8.9) K/mcL Lymphocytes # 0.4 L (0.6-4.6) K/mcL Monocytes # 0.7 (0.0-1.3) K/mcL Eosinophils # 0.0 (0.0-0.6) K/mcL Basophils # 0.0 (0.0-0.2) K/mcL Sodium 133 L (136-145) mEq/L Potassium 4.8 (3.5-5.1) mEq/L Chloride 93 L (98-107) mEq/L Carbon Dioxide 31 H (23-29) mEq/L BUN 10 (8-23) mg/dL Creatinine 0.75 (0.70-1.30) mg/dL Est GFR ( Amer) > 60 (> 60) Est GFR (Non-Af Amer) > 60 (> 60) BUN/Creatinine Ratio 13 (6-26) Glucose 217 H (70-105) mg/dL Calculated Osmolality 282 (280-300) Calcium 9.6 (8.6-10.3) mg/dL Troponin I < 0.03 (< 0.04) ng/mL B-Natriuretic Peptide (Less than 100) pg/mL 06/02/17 Range/Units 16:33 WBC (4.3-11.1) K/mcL RBC (4.19-5.50) M/mcL Hgb (12.9-16.9) g/dL Hct (37.5-50.1) % MCV (83.0-100.0) fL MCH (28.0-33.3) pg MCHC (31.6-35.5) g/dL RDW (11.5-14.5) % Plt Count (140-400) K/mcL MPV (9.4-12.4) fL Immature Gran % (0-4) % Seg Neutrophils % % Lymphocytes % % Monocytes % % Eosinophils % % Basophils % % Neutrophils # (1.6-8.9) K/mcL Lymphocytes # (0.6-4.6) K/mcL Monocytes # (0.0-1.3) K/mcL Eosinophils # (0.0-0.6) K/mcL Basophils # (0.0-0.2) K/mcL Sodium (136-145) mEq/L Potassium (3.5-5.1) mEq/L Chloride (98-107) mEq/L Carbon Dioxide (23-29) mEq/L BUN (8-23) mg/dL Creatinine (0.70-1.30) mg/dL Est GFR ( Amer) (> 60) Est GFR (Non-Af Amer) (> 60) BUN/Creatinine Ratio (6-26) Glucose (70-105) mg/dL Calculated Osmolality (280-300) Calcium (8.6-10.3) mg/dL Troponin I (< 0.04) ng/mL B-Natriuretic Peptide 41 (Less than 100) pg/mL - EKG Data EKG #1 EKG attestation: Yes I reviewed and interpreted this EKG. EKG results narrative: Sinus tachycardia. 103 bpm. TX interval 187, QRS 89, QTc [address] segment elevation or ischemia noted. When compared to previous EKG on 2016significant changes noted Attestation Statement - Attestation Attestation: I examined this patient and my medical decision-making was reviewed with the Resident Physician. I agree with the documented findings, disposition and treatment plan as described except to the extent set forth below. CT of the chest is negative, duplex is negative. We did discuss the case with the on- call quilting machine helper who requested these tests. The patient was ambulated and had subsequent hypoxia. We will admit for exertionally mediated hypoxia and possible need for supplemental oxygen. The patient will be treated for possible superimposed COPD exacerbation. Discussed case with hospitalist team. I did ask the attending quilting machine helper if they would need to be notified of the patient's admission and they said to proceed with admission to the hospitalist team. This is only if admission was warranted.
[2017-06-02 17:22] LABS: BUN/Creatinine Ratio 13 (6-26); Blood Urea Nitrogen 10 mg/dL (8-23); Calcium 9.6 mg/dL (8.6-10.3); Carbon Dioxide 31 mEq/L (23-29); Chloride 93 mEq/L (98-107); Glucose 217 mg/dL (70-105); Osmolality,Calculated 282 (280-300); Potassium 4.8 mEq/L (3.5-5.1); Sodium 133 mEq/L (136-145); eGFR For African Americans > 60 (> 60); eGFR For Non-African Americans > 60 (> 60)
[2017-06-02] MEDS ORDERED: predniSONE 20 MG TABLET PO ONE (19:13)
[2017-06-02] MEDS ORDERED: Ipratropium/Albuterol Neb 3 ML IH ONE (19:13)
[2017-06-02] MEDS ORDERED: Naloxone 0.4 MG/ML INJ IVP PRN (21:23)
--- NOTE | 2017-06-02 21:42 | Internal Med History&Physical ---
Date of Encounter: 06/02/17 Time of Encounter: 21:36 Assessment and Plan (1) Acute exacerbation of chronic obstructive airways disease Current visit: No Status: Acute 66/M Background history of history of diabetes, hypertension, COPD, active smoker. Patient is an active smoker. Patient is ongoing shortness of breath and noted that patient was evaluated by primary care and sent to this hospital for evaluation by pulmonology. Patient was in the office of pulmonology this afternoon where it was noted that patient was persistently getting short of breath and was a difficult to ambulate even a few steps. This is the reason patient was sent to emergency room for further evaluation. On examination: Patient is using accessory muscles of respiration. Patient's oxygen saturation is maintaining with the intranasal oxygen 3 L/m. Patient has polyphonic rhonchi. CTA: Negative for pulmonary embolism EKG: No acute ST-T changes. Assessment: COPD exacerbation/poorly controlled COPD. To rule out underlying cardiac issue. (Patient was never worked up in terms of cardiology) Plan: Admit as inpatient. This is not acute respiratory failure but this is a COPD exacerbation which needs intravenous antibiotics/steroids. Diabetic diet. Serial troponin. Echocardiogram. Intravenous ceftriaxone 1 g every 24 hours. Intravenous azithromycin 500 mg every 24 hours. Intravenous Solu-Medrol 40 mg every 8 hours. Inhailed bronchodilators. Close observation of respiratory status. Of note. I examined this patient in the emergency room #2 at 9:23 PM Patient's daughter was The patient. Plan of care explained at length. All questions answered. (2) Tobacco abuse Current visit: No Status: Chronic Patient is still actively smoking. We discussed at length regarding smoking cessation. Patient tells me that he will think about it and will let me know (3) BPH (benign prostatic hyperplasia) Current visit: No Status: Chronic Not an acute retention. We will continue home medication Qualifiers: Lower urinary tract symptom presence: unspecified whether lower urinary tract symptoms present Qualified Code(s): N40.0 - Benign prostatic hyperplasia without lower urinary tract symptoms (4) Diabetes Current visit: Yes Status: Acute We will follow the recommendations from subcutaneous insulin order set. Qualifiers: Diabetes mellitus type: type 2 Diabetes mellitus complication status: with unspecified complications Diabetes mellitus senior financial accountant insulin use: unspecified senior financial accountant insulin use status Qualified Code(s): E11.8 - Type 2 diabetes mellitus with unspecified complications (5) Hypertension Current visit: Yes Status: Acute Blood pressure is well controlled and we will resume home medication Qualifiers: Hypertension type: essential hypertension Qualified Code(s): I10 - Essential (primary) hypertension (6) DVT prophylaxis Current visit: No Status: Acute Heparin Medical decision making: This patient has a moderate to severe risk of worsening in spite of being on appropriate medication due to the underlying comorbid conditions. Internal Medicine - H&P: HPI Chief complaint: Shortness of breath Admitted From: Emergency Dept Plans for Post Hospital Care: Home History of present illness: PCP: Dr Kip Hamilton. Sedimentationist : Dr Mccain. Brief PMH: Diabetes, hypertension, COPD, active smoker. history of present medical illness: Patient is known to have a COPD which is long-standing illness. Patient is active smoker and intermittently quit smoking. Presently he is smoking 1 pack a day. Patient was complaining of worsening shortness of breath/difficulty in breathing for more than 2 weeks. It was noted that there was no change in patient's color of expectoration. Patient was evaluated by his primary care provider and was sent to staffing branch manager for further evaluation and management. Today vision was in a office of staffing branch manager who sent this patient to emergency room for worsening shortness of breath and persistent tachycardia. Patient denies chest pain, nausea, vomiting, abdominal pain, dizziness and diarrhea. Workup In the emergency room: Patient was evaluated in the emergency room. Noted that patient has a elevated white blood cell count. Also noted that patient has a neutrophilia. Troponin negative. CTA negative for acute pulmonary embolism. Reason for admission: COPD exacerbation likely infective origin. In a Patient who has background history of diabetes/hypertension. History: Noncontributory Past Med Surg Social Fam HX - Past Medical History Medical history: COPD, diabetes, hypertension Psychiatric history: no psych history - Past Surgical History Surgical History: no surgical history - Social History Smoking Status: Current every day smoker Smokeless Tobacco Status: No Alcohol use: heavy Drug use: none Internal Medicine - H&P: Meds Albuterol Sulfate [Albuterol Inhaler] 2 puff IH Q4H PRN 03/05/17 [History] Finasteride [Proscar] 5 mg PO DAILY 03/05/17 [History] Lisinopril [Zestril] 10 mg PO DAILY 03/05/17 [History] metFORMIN [Glucophage] 500 mg PO DAILY 03/05/17 [History] Budesonide/Formoterol 160/4.5 [Symbicort 160/4.5] 2 puff IH BIDR 30 Days hfa.aer.ad 03/09/17 [Rx] predniSONE [PredniSONE] 60 mg PO DAILY 12 Days tablet 03/09/17 [Rx] Albuterol Neb [Proventil Neb] 2.5 mg IH TID 06/02/17 [History] Ipratropium/Albuterol Neb [Duoneb] 3 ml IH Q6HR 06/02/17 [History] Nystatin [Nystatin Suspension] 400,000 unit PO QID 06/02/17 [History] 3 Allergy/AdvReac Type Severity Reaction Status Date / Time No Known Allergies Allergy Verified 06/02/17 15:45 All Systems PM: A 10-system review of systems was performed and is negative for pertinent findings except as documented above in the HPI. - Constitutional Constitutional: no chills, no fever(s), no night sweats - EENT Eyes: no change in vision, no discharge, no pain, no photophobia Ears: no ear discharge, no ear pain, no tinnitus Nose, mouth and throat: no dysphagia, no nasal discharge, no neck pain, no sore throat - Cardiovascular Cardiovascular ROS IM: dyspnea, lightheadedness, no chest pain, no diaphoresis, no palpitations, no syncope - Respiratory Respiratory: cough, dyspnea, wheezing, excessive phlegm production - Gastrointestinal Gastrointestinal: no abdominal pain, no diarrhea, no hematemesis, no hematochezia, no melena, no nausea, no vomiting - Musculoskeletal Musculoskeletal ROS IM: no numbness, no tingling - Integumentary Integumentary IM: no rash, no unusual bruising - Neurological Neurological ROS: no confusion, no convulsions, no focal weakness, no numbness, no tingling, no tremor(s) - Hematologic/Lymphatic Hematologic/Lymphatic: no easy bruising - Constitutional Vitals: Temp Pulse Resp BP Pulse Ox 98.9 F 88 16 129/75 97 06/02/17 15:43 06/02/17 21:03 06/02/17 19:50 06/02/17 21:03 06/02/17 21:03 General appearance: Present: A&O X 3, pleasant, no acute distress, answers questions appropriately - Head Head exam: Present: atraumatic, normocephalic - Eye Eye exam: Present: PERRL, conjuntiva pink, sclera anicteric Pupils: Present: PERRL - Neck Neck exam general surgery: Present: supple, trachea midline. Absent: lymphadenopathy - Respiratory Respiratory exam: Present: accessory muscle use, rhonchi, wheezes. Absent: rales - Cardiovascular Cardiovascular exam: Present: RRR, +S1, +S2. Absent: diastolic murmur, gallop, rubs, systolic murmur - GI/Abdominal GI/Abdominal exam: Present: normal bowel sounds, soft, no peritoneal signs. Absent: distended, tenderness - Extremities Exam Extremities exam: Present: warm, radial pulses palpable and symmetrical. Absent : calf tenderness, cyanotic, pedal edema - Neurological Exam Neurological exam: Present: CN II-XII intact, oriented X3, no focal deficits. Absent: pronater drift, facial droop, speech deficit - Skin Skin exam: Present: dry, intact Internal Med - H&P Results - Labs CBC & Chem 7: 06/02/17 16:33 06/02/17 16:33 Labs: Short CBC 06/02/17 Range/Units 16:33 WBC 13.7 H (4.3-11.1) K/mcL Hgb 12.7 L (12.9-16.9) g/dL Hct 39.0 (37.5-50.1) % Plt Count 240 (140-400) K/mcL Neutrophils # 12.5 H (1.6-8.9) K/mcL BMP 06/02/17 16:33 Sodium 133 L Potassium 4.8 Chloride 93 L Carbon Dioxide 31 H BUN 10 Creatinine 0.75 Glucose 217 H Calcium 9.6 Cardiac Enzymes 06/02/17 Range/Units 16:33 Troponin I < 0.03 (< 0.04) ng/mL - Impressions ITS Impressions Chest CTA 06/02/17 16:21 IMPRESSION: No evidence of pulmonary embolism or acute pulmonary abnormality. D/ / Clari Hill Cha, MD / Clari Hill Cha, MD Interpreting Provider: Clari Hill Cha, MD
[2017-06-02] MEDS ORDERED: *HR* Dextrose 50 % in Water (Syg) 50 ML SYRINGE IVP PRN (21:51)
[2017-06-02] MEDS ORDERED: Dextrose Gel 15 GM/37.5 ML TUBE PO PRN ×2 (21:51)
[2017-06-02] MEDS ORDERED: D5% in Water 1,000 ML IVC PRN (21:51)
[2017-06-02] MEDS ORDERED: cefTRIAXone 1,000 MG in Water for inj. (sterile) 20 ML 10 ML IVPB SCH (22:00)
[2017-06-02] MEDS ORDERED: Azithromycin 500 MG in D5% in Water 250 ML IVPB SCH (22:00)
[2017-06-02] MEDS: Ipratropium/Albuterol Neb 3 ML IH SCH (23:11)
[2017-06-03] MEDS: *HR* Heparin 5,000 UNIT/ML VIAL SQ SCH ×3 (01:02→18:44)
[2017-06-03] MEDS: MethylPREDNISolone 40 MG/ML VIAL IVP SCH ×3 (01:03→18:45)
[2017-06-03] MEDS ORDERED: Water for inj. (sterile) 20 ML 20 ML IV ONE (01:05)
[2017-06-03] MEDS: Ipratropium/Albuterol Neb 3 ML IH SCH ×6 (04:23→23:52)
[2017-06-03 06:14] LABS: Basophils % 0.1 %; Hematocrit 38.3 % (37.5-50.1); Hemoglobin 12.4 g/dL (12.9-16.9); Immature Granulocytes % 0.6 % (0-4); Lymphocytes # 0.4 K/mcL (0.6-4.6); Lymphocytes % 4.3 %; Mean Corpuscular HGB Conc 32.4 g/dL (31.6-35.5); Mean Corpuscular Hemoglobin 31.6 pg (28.0-33.3); Mean Corpuscular Volume 97.5 fL (83.0-100.0); Mean Platelet Volume 8.8 fL (9.4-12.4); Monocytes # 0.1 K/mcL (0.0-1.3); Monocytes % 0.9 %; Neutrophils # 8.4 K/mcL (1.6-8.9); Platelet Count 235 K/mcL (140-400); Red Blood Count 3.93 M/mcL (4.19-5.50); Red Cell Distribution Width 15.9 % (11.5-14.5); Segmented Neutrophils % 94.1 %
[2017-06-03 06:28] LABS: Prothrombin Time 10.4 Seconds (9.4-12.1)
[2017-06-03 06:31] LABS: Activated Partial Thrombo Time 28.4 Seconds (26.0-36.0)
[2017-06-03 06:33] LABS: Hemoglobin A1C 6.4 %
[2017-06-03 06:38] LABS: Alanine Aminotransferase 13 Units/L (7-52); Albumin 3.6 g/dL (3.5-5.7); Albumin/Globulin Ratio 1.3 (1.1-2.2); Alkaline Phosphatase 55 Units/L (34-104); Aspartate Amino Transferase 11 Units/L (13-39); BUN/Creatinine Ratio 14 (6-26); Bilirubin,Total 0.4 mg/dL (0.3-1.0); Blood Urea Nitrogen 9 mg/dL (8-23); Calcium 9.3 mg/dL (8.6-10.3); Carbon Dioxide 32 mEq/L (23-29); Chloride 95 mEq/L (98-107); Chol/HDL Ratio 1.9 (0-4.9); Cholesterol 205 mg/dL (< 200); Globulin 2.7 g/dL (2.4-3.5); Glucose 210 mg/dL (70-105); HDL Cholesterol 110 mg/dL (40-59); LDL Cholesterol,Calculated 81 mg/dL (0-99); Magnesium 2.2 mg/dL (1.6-2.6); Osmolality,Calculated 283 (280-300); Phosphorous 3.7 mg/dL (2.7-4.5); Sodium 134 mEq/L (136-145); Total Protein 6.3 g/dL (6.4-8.9); Triglycerides 72 mg/dL (< 150); eGFR For African Americans > 60 (> 60); eGFR For Non-African Americans > 60 (> 60)
[2017-06-03] MEDS: Insulin LISPRO 300 UNITS/3 ML VIAL SQ SCH ×3 (08:26→18:44)
[2017-06-03] MEDS: Nystatin SUSP 5 ML UD.LIQ PO SCH ×4 (08:27→20:24)
[2017-06-03] MEDS: Finasteride 5 MG TABLET PO SCH (08:27)
--- NOTE | 2017-06-03 11:41 | Electrocardiograph Report ---
[place] [id number] Test Date: 2017-06-02 Pat Name: Liu Bernal Department: 102 Room: 3A46 Gender: M Production Shift Supervisor: Luz : 1950 Requested By: Liat Hernández Order Number: [id number] Reading MD: Moncho Leo MD Measurements Intervals [place] Rate: 103 P: 83 RI: 187 QRS: 68 QRSD: 89 T: 75 QT: 307 QTc: 367 Interpretive Statements SINUS TACHYCARDIA Electronically Signed On 06-03-2017 11:40:02 EST by Moncho Leo MD
--- NOTE | 2017-06-03 15:48 | Internal Med Progress Note ---
<Jaswinder Valle - Last Filed: 06/03/17 18:10> Date of Encounter: 06/03/17 Time of Encounter: 15:48 - Assessment and plan (1) Acute exacerbation of chronic obstructive airways disease Current Visit: No Status: Acute Assessment and plan: Patient has ongoing shortness of breath for the past 3 months which has been evaluated by primary care and is currently undergoing evaluation through pulmonology then sent to the ED. Patient is maintaining his oxygen saturation on 2 L. CTA was negative for pulmonary embolism or pneumonia and EKG showed no acute STT changes. Plan is to rule out cardiac cause. The patient serial troponins were negative and echo done today showed an ejection fraction of 60%, mild LVH, and mild left ventricular diastolic function with normal wall motion. Antibiotic will be switched to Levaquin for pseudomonas coverage. Stop ceftriaxone and azithro I consult with the social science manager and discussed the prescription for portable oxygen, she will call me back in the morning to fill out the prescription. (2) Tobacco abuse Current Visit: No Status: Chronic (3) Diabetes Current Visit: Yes Status: Acute Assessment and plan: Corrective low-dose insulin sliding scale protocol Qualifiers: Diabetes mellitus type: type 2 Diabetes mellitus complication status: with unspecified complications Diabetes mellitus skilled nursing insulin use: unspecified regional intermodal truck driver insulin use status Qualified Code(s): E11.8 - Type 2 diabetes mellitus with unspecified complications (4) Hypertension Current Visit: Yes Status: Acute Assessment and plan: Blood pressure is well controlled we will resume home medications. Qualifiers: Hypertension type: essential hypertension Qualified Code(s): I10 - Essential (primary) hypertension (5) BPH (benign prostatic hyperplasia) Current Visit: No Status: Chronic Assessment and plan: We will continue home medications. Qualifiers: Lower urinary tract symptom presence: unspecified whether lower urinary tract symptoms present Qualified Code(s): N40.0 - Benign prostatic hyperplasia without lower urinary tract symptoms (6) DVT prophylaxis Current Visit: No Status: Acute Assessment and plan: Heparin - Subjective Interval history: Patient is a 66-year-old male with a past medical history of COPD, diabetes, and hypertension presented initially to the emergency department for tachycardia and exertional dyspnea. The patient states that he has had difficulty with breathing when he is ambulating and this has been going on for 3 months. He was initially evaluated by his PCP and then sent to his light rail operator. His light rail operator sent into the emergency department for rule out PE and DVT due to the patient's exertional dyspnea and tachycardia. At the time the patient was denying any chest pain. Patient here states that he was seeking a prescription for portable oxygen. He states that he is on 2 L of oxygen at home when he is sleeping and as needed. Patient denies any new cough or sputum change. The patient CTA of his chest and lower extremity Doppler was negative in the emergency department. Patient had a mild leukocytosis at 13.7 with neutrophils. He was admitted to the hospital for COPD exacerbation and exertional hypoxia. With need for supplemental oxygen. - Constitutional Vitals: Temp Pulse Resp BP Pulse Ox 98.0 F 83 16 138/74 95 06/03/17 10:53 06/03/17 10:53 06/03/17 11:23 06/03/17 10:53 06/03/17 11:23 General appearance: Present: A&O X 3, pleasant, no acute distress, answers questions appropriately - Head Head exam: Present: atraumatic, normal inspection, normocephalic Additional comments: Patient is sitting in bed resting comfortably with his 2 L nasal cannula. He is not appear to be in respiratory distress at this time. He is able to speak to me in full sentences. - Eye Eye exam: Present: normal appearance, PERRL - Neck Neck exam general surgery: Present: full ROM, normal inspection - Respiratory Respiratory exam: Present: CTAB. Absent: rales, rhonchi, wheezes - Cardiovascular Cardiovascular exam: Present: RRR, +S1, +S2 - GI/Abdominal GI/Abdominal exam: Present: normal bowel sounds, soft, no peritoneal signs. Absent: tenderness - Extremities Exam Extremities exam: Present: normal capillary refill, normal inspection. Absent: calf tenderness, pedal edema, tenderness - Back Exam Back exam: Present: normal inspection. Absent: CVA tenderness (L), CVA tenderness (R) - Neurological Exam Neurological exam: Present: alert, oriented X3 - Psychiatric Psychiatric exam: Present: normal affect, normal mood - Skin Skin exam: Present: normal color, warm Internal Medicine: Result - Labs CBC & Chem 7: 06/03/17 05:44 06/03/17 05:44 Labs: Short CBC 06/03/17 Range/Units 05:44 WBC 8.9 (4.3-11.1) K/mcL Hgb 12.4 L (12.9-16.9) g/dL Hct 38.3 (37.5-50.1) % Plt Count 235 (140-400) K/mcL Neutrophils # 8.4 (1.6-8.9) K/mcL BMP 06/03/17 05:44 Sodium 134 L Potassium 4.0 Chloride 95 L Carbon Dioxide 32 H BUN 9 Creatinine 0.66 L Glucose 210 H Calcium 9.3 Cardiac Enzymes 06/02/17 06/03/17 06/03/17 Range/Units 22:27 05:44 11:48 Troponin I < 0.03 < 0.03 < 0.03 (< 0.04) ng/mL Liver Function 06/03/17 Range/Units 05:44 Total Bilirubin 0.4 (0.3-1.0) mg/dL AST 11 L (13-39) Units/L ALT 13 (7-52) Units/L Alkaline Phosphatase 55 (34-104) Units/L Albumin 3.6 (3.5-5.7) g/dL - ABG Interpretation ABG results: PT/INR, D-dimer PT 10.4 Seconds (9.4-12.1) 06/03/17 05:44 Consult Discharge Plan - Plan Referrals: Alfonso,Chandra Arce MD [Primary Care Provider] - <Trung Rush - Last Filed: 06/03/17 18:57> Date of Encounter: 06/03/17 - Constitutional Vitals: Temp Pulse Resp BP Pulse Ox 97.6 F 79 16 125/74 94 06/03/17 16:20 06/03/17 16:20 06/03/17 16:43 06/03/17 16:20 06/03/17 16:43 Internal Medicine: Result - Labs CBC & Chem 7: 06/03/17 05:44 06/03/17 05:44 Labs: Short CBC 06/03/17 Range/Units 05:44 WBC 8.9 (4.3-11.1) K/mcL Hgb 12.4 L (12.9-16.9) g/dL Hct 38.3 (37.5-50.1) % Plt Count 235 (140-400) K/mcL Neutrophils # 8.4 (1.6-8.9) K/mcL BMP 06/03/17 05:44 Sodium 134 L Potassium 4.0 Chloride 95 L Carbon Dioxide 32 H BUN 9 Creatinine 0.66 L Glucose 210 H Calcium 9.3 Cardiac Enzymes 06/02/17 06/03/17 06/03/17 Range/Units 22:27 05:44 11:48 Troponin I < 0.03 < 0.03 < 0.03 (< 0.04) ng/mL Liver Function 06/03/17 Range/Units 05:44 Total Bilirubin 0.4 (0.3-1.0) mg/dL AST 11 L (13-39) Units/L ALT 13 (7-52) Units/L Alkaline Phosphatase 55 (34-104) Units/L Albumin 3.6 (3.5-5.7) g/dL - ABG Interpretation ABG results: PT/INR, D-dimer PT 10.4 Seconds (9.4-12.1) 06/03/17 05:44 - Attending Attestation I examined this patient and my medical decision-making was reviewed with the Resident Physician. I agree with the documented findings, disposition and treatment plan as described except to the extent set forth below. This is Dr. Robert Rush
[2017-06-03] MEDS: Levofloxacin 750 MG/150 ML 750 MG/150 ML BAG IVPB SCH (18:48)
[2017-06-03] MEDS ORDERED: Insulin LISPRO 300 UNITS/3 ML VIAL SQ SCH (21:00)
[2017-06-04] MEDS: MethylPREDNISolone 40 MG/ML VIAL IVP SCH ×2 (00:30→08:32)
[2017-06-04] MEDS: *HR* Heparin 5,000 UNIT/ML VIAL SQ SCH ×3 (00:30→16:54)
[2017-06-04] MEDS: Ipratropium/Albuterol Neb 3 ML IH SCH ×6 (03:39→23:32)
[2017-06-04] MEDS: Finasteride 5 MG TABLET PO SCH (08:18)
[2017-06-04] MEDS: Nystatin SUSP 5 ML UD.LIQ PO SCH ×4 (08:19→21:21)
[2017-06-04] MEDS: Insulin LISPRO 300 UNITS/3 ML VIAL SQ SCH ×3 (08:22→16:54)
--- NOTE | 2017-06-04 10:30 | Internal Med Progress Note ---
<Jaswinder Valle - Last Filed: 06/04/17 15:49> Date of Encounter: 06/04/17 Time of Encounter: 10:28 - Assessment and plan (1) Acute exacerbation of chronic obstructive airways disease Current Visit: No Status: Acute Assessment and plan: Patient is maintaining his oxygen saturation level on 2 L. Today the patient was resting in bed without nasal cannula oxygen and his oxygen saturation was in the mid 90s. The plan today is to de-escalate his IV steroids to oral. Patient lung sounds are improving. Most likely discharge tomorrow. Patient agrees with plan. I spoke with Melisa, from Social Work she states that she had discussions with the patient he states that he does have portable oxygen at home he is actually requesting the machine so that he can go out for extended periods of time. She states she will be faxing down a prescription for the attending to sign today and he will be placed on the waiting list. She has requested that his family bring an oxygen from home for him. Patient states that he feels that he is much improved today, does not feel completely back to baseline. Plan Patient is currently on day 2 of [facility]. (2) Diabetes Current Visit: Yes Status: Acute Assessment and plan: Corrective medium-dose insulin sliding scale protocol and added QHS basal insulin. Hemoglobin A1c was 6.4. Qualifiers: Diabetes mellitus type: type 2 Diabetes mellitus complication status: with unspecified complications Diabetes mellitus dedicated intermodal truck driver insulin use: unspecified dedicated intermodal truck driver insulin use status Qualified Code(s): E11.8 - Type 2 diabetes mellitus with unspecified complications (3) Hypertension Current Visit: Yes Status: Acute Assessment and plan: Blood pressure is well controlled we will resume home medications. Qualifiers: Hypertension type: essential hypertension Qualified Code(s): I10 - Essential (primary) hypertension (4) DVT prophylaxis Current Visit: No Status: Acute Assessment and plan: Heparin - Subjective Interval history: Patient is a 66-year-old male with a past medical history of COPD, diabetes, and hypertension presented initially to the emergency department for tachycardia and exertional dyspnea. The patient states that he has had difficulty with breathing when he is ambulating and this has been going on for 3 months. Patient had a CTA that was negative for PE or pneumonia and lower extremity Dopplers are negative for DVT. Patient here states that he was seeking a prescription for portable oxygen concentrator. He states that he is on 2 L of oxygen at home when he is sleeping and as needed. Patient denies any new cough or sputum change. He was admitted for his acute exacerbation of COPD and exertional hypoxia. Patient is showing improvement in symptoms. He was resting in bed with no oxygen on exam and saturation was 90-95% - Constitutional Vitals: Temp Pulse Resp BP Pulse Ox 97.7 F 86 18 147/84 95 06/04/17 06:00 06/04/17 06:00 06/04/17 07:35 06/04/17 06:00 06/04/17 08:15 General appearance: Present: A&O X 3, pleasant, no acute distress, answers questions appropriately Exam: Upon entering the room the patient was laying in bed stating that he was preparing to take a nap. He speaks in full sentences and is pleasant. His oxygen is currently off and is satting in the low 90s. - Head Head exam: Present: atraumatic, normal inspection, normocephalic - Eye Eye exam: Present: EOMI, normal appearance, PERRL - Neck Neck exam general surgery: Present: full ROM, normal inspection, supple - Respiratory Respiratory exam: Present: CTAB, wheezes (Patient has diffuse wheezing mild to moderate the upper and lower lung toussaint.). Absent: rales, respiratory distress , rhonchi - Cardiovascular Cardiovascular exam: Present: RRR, +S1, +S2 - GI/Abdominal GI/Abdominal exam: Present: soft. Absent: tenderness - Extremities Exam Extremities exam: Present: full ROM, normal inspection, warm. Absent: calf tenderness, pedal edema - Back Exam Back exam: Present: normal inspection - Neurological Exam Neurological exam: Present: alert, oriented X3 - Psychiatric Psychiatric exam: Present: normal affect, normal mood - Skin Skin exam: Present: intact, normal color Internal Medicine: Result - Labs CBC & Chem 7: 06/03/17 05:44 06/03/17 05:44 Labs: Cardiac Enzymes 06/03/17 Range/Units 11:48 Troponin I < 0.03 (< 0.04) ng/mL - ABG Interpretation ABG results: PT/INR, D-dimer PT 10.4 Seconds (9.4-12.1) 06/03/17 05:44 Consult Discharge Plan - Plan Referrals: Alfonso,Chandra N, MD [Primary Care Provider] - (Patient to call and make appt. after discharge. Thank you) <Trung Rush - Last Filed: 06/04/17 17:45> Date of Encounter: 06/04/17 - Constitutional Vitals: Temp Pulse Resp BP Pulse Ox 98.3 F 98 18 131/69 92 06/04/17 13:27 06/04/17 13:27 06/04/17 15:49 06/04/17 13:27 06/04/17 15:49 Internal Medicine: Result - Labs CBC & Chem 7: 06/03/17 05:44 06/03/17 05:44 - ABG Interpretation ABG results: PT/INR, D-dimer PT 10.4 Seconds (9.4-12.1) 06/03/17 05:44 - Attending Attestation I examined this patient and my medical decision-making was reviewed with the Resident Physician. I agree with the documented findings, disposition and treatment plan as described except to the extent set forth below.
[2017-06-04] MEDS: Levofloxacin 750 MG/150 ML 750 MG/150 ML BAG IVPB SCH (16:52)
[2017-06-04] MEDS ORDERED: Insulin LISPRO 300 UNITS/3 ML VIAL SQ SCH (21:00)
[2017-06-04] MEDS ORDERED: Insulin DETEMIR 100 UNIT/ML X5UNITS SQ SCH (21:00)
[2017-06-05] MEDS: *HR* Heparin 5,000 UNIT/ML VIAL SQ SCH ×2 (00:08→09:09)
[2017-06-05] MEDS: Ipratropium/Albuterol Neb 3 ML IH SCH ×3 (04:30→11:50)
--- NOTE | 2017-06-05 08:00 | Discharge Summary ---
Date of Encounter: 06/05/17 Time of Encounter: 07:58 - Discharge Diagnosis (1) Alcohol abuse Priority: Primary Status: Chronic (2) COPD exacerbation Priority: Secondary Status: Chronic Comments: Patient clinically back at his baseline will be discharged home today on Levaquin for several more days (3) Diabetes Priority: Secondary Status: Chronic Qualifiers: Diabetes mellitus type: type 2 Diabetes mellitus complication status: with unspecified complications Diabetes mellitus retirement insulin use: unspecified retirement insulin use status Qualified Code(s): E11.8 - Type 2 diabetes mellitus with unspecified complications (4) Hypertension Priority: Secondary Status: Chronic Qualifiers: Hypertension type: essential hypertension Qualified Code(s): I10 - Essential (primary) hypertension - Discharge Medications Prescriptions: levoFLOXacin [Levaquin] 500 mg PO DAILY 7 Days #7 tablet Home Medications: Albuterol Sulfate [Albuterol Inhaler] 2 puff IH Q4H PRN 03/05/17 [History] Finasteride [Proscar] 5 mg PO DAILY 03/05/17 [History] Lisinopril [Zestril] 10 mg PO DAILY 03/05/17 [History] metFORMIN [Glucophage] 500 mg PO DAILY 03/05/17 [History] Budesonide/Formoterol 160/4.5 [Symbicort 160/4.5] 2 puff IH BIDR 30 Days [facility]fa.[email or web address] 03/09/17 [Rx] predniSONE [PredniSONE] 60 mg PO DAILY 12 Days tablet 03/09/17 [Rx] Albuterol Neb [Proventil Neb] 2.5 mg IH TID 06/02/17 [History] Ipratropium/Albuterol Neb [Duoneb] 3 ml IH Q6HR 06/02/17 [History] Nystatin [Nystatin Suspension] 400,000 unit PO QID 06/02/17 [History] levoFLOXacin [Levaquin] 500 mg PO DAILY 7 Days #7 tablet 06/05/17 [Rx] Allergies/Adverse Reactions: 3 Allergy/AdvReac Type Severity Reaction Status Date / Time No Known Allergies Allergy Verified 06/02/17 15:45 Date of admission: 06/02/17 22:04 Primary care physician: Chandra Hamilton MD Discharging clinician: Temitope Thao Anticipated date of discharge: 06/05/17 - Patient Status Disposition: Home, Self-Care Condition: Good Functional capacity at discharge: independent ambulation Overall status at discharge: patient is back to baseline - Discharge Instructions - Diet and Activity Activity: other Diet: diabetic diet (none ) Hospital course: Mr. Bernal is a 66 year old male - Time Spent with Patient Total time spent providing and/or coordinating discharge services: - Constitutional Vitals: Temp Pulse Resp BP Pulse Ox 98.0 F 85 16 177/88 96 06/05/17 07:49 06/05/17 07:49 06/05/17 07:49 06/05/17 07:49 06/05/17 07:49 General appearance: Present: A&O X 3, pleasant, no acute distress, answers questions appropriately
[2017-06-05] MEDS ORDERED: MethylPREDNISolone 40 MG/ML VIAL IVP SCH (09:00)
[2017-06-05] MEDS: Insulin LISPRO 300 UNITS/3 ML VIAL SQ SCH ×2 (09:01→12:24)
[2017-06-05] MEDS: Finasteride 5 MG TABLET PO SCH (09:05)
[2017-06-05] MEDS: Nystatin SUSP 5 ML UD.LIQ PO SCH ×2 (09:05→12:24)
[2017-06-05 12:35] VITALS: BP 171/84
== END 2017-06-05 13:52 | disposition home or self-care (01) | DRG 192 ==
LOC: 3ANU 15:39 → EMEROO 15:39 → OBSVTOIN 22:04 → 3ANU 22:42
PROVIDERS: ADMIT Internal Medicine; ATTEND Internal Medicine